=== PATIENT | female | born 1995 | race Two or more races ===

== ENCOUNTER 2023-07-07 08:19 | Emergency (ER) | payer OTHER ==
[~2023-07-07] VITALS: Ht 175.3 cm; Wt 67.1 kg
[2023-07-07] MEDS ORDERED: DEXAMETHASONE SODIUM PHOSPHATE 4 MG/ML VIAL IM STA (09:36)
[2023-07-07] MEDS ORDERED: GUAIFENESIN/DEXTROMETHORPHAN 100 MG/5 ML ML PO STA (09:36)
[2023-07-07] MEDS ORDERED: DEXAMETHASONE4 MG PO (09:48)
[2023-07-07] MEDS ORDERED: MUCINEX DM ER1 EACH PO (09:48)
[2023-07-07] MEDS ORDERED: ZYRTEC10 MG PO (09:48)
[2023-07-07] MEDS ORDERED: SINGULAIR10 MG PO (09:48)
[2023-07-07] MEDS ORDERED: LEVOFLOXACIN750 MG PO (09:48)
== END 2023-07-07 09:58 | disposition home or self-care (01) ==
LOC: ER 08:20
DX: J06.9 Acute upper respiratory infection, unspecified (principal); Z88.2 Allergy status to sulfonamides

== ENCOUNTER 2023-07-12 18:13 | Emergency (ER) | payer OTHER ==
[~2023-07-12] VITALS: Ht 167.6 cm; Wt 72.6 kg
[~2023-07-12 18:13] MED LIST: DEXAMETHASONE4 MG PO; LEVOFLOXACIN750 MG PO; MUCINEX DM ER1 EACH PO; SINGULAIR10 MG PO; ZYRTEC10 MG PO
[2023-07-12] MEDS ORDERED: KETOROLAC TROMETHAMINE 30 MG VIAL IM STA (21:40)
== END 2023-07-12 22:11 | disposition home or self-care (01) ==
LOC: ER 18:13
DX: J32.9 Chronic sinusitis, unspecified (principal); Z88.2 Allergy status to sulfonamides; J06.9 Acute upper respiratory infection, unspecified; Z20.822 Contact with and (suspected) exposure to COVID-19
CPT/HCPCS: 36415; 70210; J1885